=== PATIENT | female | born 1950 | race Caucasian/White ===

== ENCOUNTER 2016-10-11 22:57 | Emergency (ER) | payer OTHER ==
--- NOTE | 2016-10-11 23:04 | PDOC ---
History of Present Illness - General Chief Complaint: Injury Stated Complaint: INJURY TO RIGHT ANKLE/SYNCOPE Time Seen by Provider: 10/11/16 22:59 History Source: Patient Exam Limitations: No Limitations - History of Present Illness Initial Comments: 10/11/16 23:54 This is a 66-year-old female who fell asleep on the couch and when she woke up her foot had been under her and it was noted she got up to get off the couch in the foot gave out twisting her ankle. Patient had a brief vasovagal episode as a result of the pain from her ankle being twisted. Patient denied anynausea or chest pain or headache. Patient daughter who witnessed the episode said that that she was slightly diaphoretic and was out for less than 10 seconds. PAST MEDICAL HISTORY: no significant history PAST SURGICAL HISTORY: no significant history FAMILY HISTORY: no pertinant history SOCIAL HISTORY: Pt lives with family and is employed. MEDICATIONS: reviewed ALLERGIES: As per nursing notes Review of Systems General: No fevers or chills, no weakness, no weight loss HEENT: No change in vision. No sore throat,. No ear pain CardioVascular: No chest pain or shortness of breath Respiratory:No cough, or wheezing. Gastrointestinal: no nausea, vomitting, diarrhea or constipation, No rectal bleeding Genitourinary: No dysuria, hematuria, or frequency Musculoskeletal: No joint or muscle pain or swelling Neurologic: No headache, vertigo, dizziness or loss of consciousness Psychiatric: nor depression Skin: No rashes or easy bruising Endocrine: no increased thirst or abnormal weight change Allergic: no skin or latex allergy All other systems reviewed and normal Exam: General: Well-nourished well-developed individual, no acute distress HEENT: Throat: Normal, tonsils normal, no erythema or exudate Neck: Supple, no meningeal signs, no lymphadenopathy Eyes::Pupils equal reactive and round, extraocular motion intact Chest: Nontender to palpation Cardiac: S1-S2 normal, regular rate and rhythm, no murmurs rubs or gallops Respiratory: Lungs clear to auscultation bilateral Abdomen: Soft, nondistended, normal bowel sounds, nontender to palpation diffusely Extremities: Right ankle there is some tenderness and swelling over the ankle laterally. There is no tenderness base of the fifth metatarsal neurovascular is intact. Skin: No rashes Neuro: Alert and oriented x3, nonfocal exam, grossly intact, normal gait Psych: Normal mood and affect X-ray no acute fracture dislocation Assessment and plan: This is a 66-year-old female who twisted her right ankle resulting in a sprain of the ankle. As a result of the pain patient experienced a brief vasovagal episode. Patient had a workup for the vasovagal episode that was negative including a normal cardiogram and normal labs. Patient's ankle was wrapped with an Oscar wrap and she was discharged home. Patient has a primary care doctor she can follow-up with. Past History - Past Medical History Allergies/Adverse Reactions: Allergies Allergy/AdvReac Type Severity Reaction Status Date / Time Penicillins Allergy Verified 10/11/16 23:04 Home Medications: Ambulatory Orders Aspirin [ASA -] 81 mg PO DAILY 10/11/16 ED Treatment Course - LABORATORY CBC & Chemistry Diagram: 10/11/16 23:20 10/11/16 23:20 *DC/Admit/Observation/Transfer Diagnosis at time of Disposition: Vasovagal syncope Sprain of right ankle Qualifiers: Encounter type: initial encounter Involved ligament of ankle: unspecified ligament Qualified Code(s): S93.401A - Sprain of unspecified ligament of right ankle, initial encounter - Discharge Dispostion Disposition: HOME Condition at time of disposition: Stable - Patient Instructions Additional Instructions: Tylenol or Motrin as needed for pain. Wear the Oscar wrap on your ankle and use crutches as needed for walking. It is okay to bear weight as tolerated. Return to the emergency department immediately with ANY new, persistent or worsening symptoms. Continue any medications as previously prescribed by your physician. You should follow up with your primary doctor as soon as possible regarding today's emergency department visit. . Please make sure your doctor reviews the results of your emergency evaluation. Thank you for coming to the Emergency Department today for your care. It was a pleasure to see you today. Please note that your evaluation is INCOMPLETE until you follow-up with your doctor.
[2016-10-11 23:30] LABS: BASOPHIL 0.8 % (0-2.0); EOSINOPHIL 5.2 % (0-4.5); MCH 30.4 pg (25.7-33.7); MEAN PLT VOLUME 9.1 fl (7.5-11.1); NEUTROPHILS 62.1 % (42.8-82.8); PLATELET COUNT 231 K/MM3 (134-434); RDW 12.3 % (11.6-15.6); WHITE BLOOD COUNT 7.2 K/mm3 (4.0-10.8)
[2016-10-11 23:35] VITALS: BP 113/78; PULSE 60; TEMP 97.5; BMI 24.3
[2016-10-11 23:39] LABS: ALBUMIN 3.9 g/dl (3.5-5.0); ALK PHOS 69 U/L (32-92); ANION GAP 7 (8-16); BILIRUBIN,TOTAL 0.3 mg/dl (0.2-1.0); CALCIUM 8.9 mg/dl (8.4-10.2); CO2 29 mmol/L (22-28); COCKROFT - GAULT 93.0NP155; CPK(DFH) 94 IU/L (26-140); CREATININE 0.7 mg/dl (0.6-1.3); GLUCOSE,RANDOM 142 mg/dl (74-106); SGOT/AST 21 U/L (10-42); SGPT/ALT 18 U/L (10-40); TOT PROT 6.6 g/dl (6.4-8.3)
[2016-10-11 23:51] LABS: TROPONIN I (DFP) < 0.03 ng/ml (0.03-0.50)
--- NOTE | 2016-10-12 10:27 | EKG ---
Test Reason : Blood Pressure : / mmHG Vent. Rate : 056 BPM Atrial Rate : 056 BPM P-R Int : 142 ms QRS Dur : 088 ms QT Int : 452 ms P-R-T Axes : 000 024 -17 degrees QTc Int : 436 ms SINUS BRADYCARDIA OTHERWISE NORMAL ECG NO PREVIOUS ECGS AVAILABLE Confirmed by MERRICK FULTON MD ([id number]) on 10/12/2016 10:27:02 AM Referred By: MD GILLIAM Confirmed By:MERRICK FULTON MD
== END 2016-10-12 00:06 | disposition home or self-care (01) ==
LOC: FER 22:57
DX: R55 Syncope and collapse (principal); S93.401A Sprain of unspecified ligament of right ankle, initial encounter; W18.30XA Fall on same level, unspecified, initial encounter; Y93.89 Activity, other specified; Y92.008 Other place in unspecified non-institutional (private) residence as the place of occurrence of the external cause
CPT/HCPCS: 36415; 73610-TC-RT; 80053; 82550; 84484; 85025; 93005; 99282-25